=== PATIENT | female | born 1955 | race Asian ===

== ENCOUNTER 2018-11-09 13:00 | Emergency (ER) | payer OTHER ==
[2018-11-09] MEDS ORDERED: ASPIRIN 81 MG CHEWABLE TABLETS PO ONE (13:09)
--- NOTE | 2018-11-09 13:10 | PDOC ---
Rapid Medical Evaluation Time Seen by Provider: 11/09/18 13:07 Medical Evaluation: 11/09/18 13:08 HIP: L leg pain which radiates to abdomen and chest PE: Diaphoretic ORDERS: Cardiac work up and labs Discharge Disposition - Diagnosis Chest pain - Referrals - Patient Instructions - Post Discharge Activity
[2018-11-09 13:11] VITALS: PULSE 68; TEMP 98.3; BMI 29.2
[2018-11-09] MEDS ORDERED: ASPIRIN 81 MG CHEWABLE TABLETS ONE (14:13)
[2018-11-09] MEDS ORDERED: ACETAMINOPHEN 500 MG TABLET (FP) PO ONE (14:43)
[2018-11-09] MEDS ORDERED: LIDOCAINE 5% TOPICAL PATCH TP ONE (14:43)
[2018-11-09 14:49] LABS: BASO % 0.3 % (0-2.0); EOS % 1.3 % (0-4.5); HEMATOCRIT 35.9 % (32.4-45.2); HEMOGLOBIN 12.3 GM/dL (10.7-15.3); LYMPH % 37.7 % (8-40); MCH 31.5 pg (25.7-33.7); MCHC 34.2 g/dl (32.0-36.0); MEAN PLT VOLUME 7.5 fl (7.5-11.1); MONO % 6.3 % (3.8-10.2); NEUT % 54.4 % (42.8-82.8); PLATELET COUNT 238 K/MM3 (134-434); RDW 13.9 % (11.6-15.6); WHITE BLOOD COUNT 6.5 K/mm3 (4.0-10.0)
[2018-11-09 15:05] LABS: INR 0.97 (0.83-1.09); PROTHROMBIN TIME (PATIENT) 11.4 SEC (9.7-13.0)
[2018-11-09] MEDS ORDERED: diazePAM 2 MG TABLET PO ONE (15:08)
--- NOTE | 2018-11-09 15:08 | EKG ---
Test Reason : Blood Pressure : / mmHG Vent. Rate : 069 BPM Atrial Rate : 069 BPM P-R Int : 166 ms QRS Dur : 086 ms QT Int : 378 ms P-R-T Axes : 053 004 051 degrees QTc Int : 405 ms NORMAL SINUS RHYTHM NORMAL ECG NO PREVIOUS ECGS AVAILABLE Confirmed by AMAURI CEDEÑO, APURVA ([id number]) on 11/09/2018 3:08:20 PM Referred By: Confirmed By:APURVA BAUGH MD
[2018-11-09 15:19] LABS: ALK PHOS 63 U/L (45-117); ANION GAP 6 MMOL/L (8-16); BILIRUBIN,TOTAL 0.3 mg/dL (0.2-1); BLOOD UREA NITROGEN 12.8 mg/dL (7-18); CHLORIDE 104 mmol/L (98-107); CO2 27 mmol/L (21-32); GLUCOSE,RANDOM 117 mg/dL (74-106); MAGNESIUM 2.6 mg/dL (1.8-2.4); SGOT/AST 19 U/L (15-37); SGPT/ALT 30 U/L (13-61); SODIUM 137 mmol/L (136-145); TOT PROT 7.8 g/dl (6.4-8.2)
[2018-11-09] MEDS ORDERED: ACETAMINOPHEN 325 MG TABLET (FP) ONE (15:33)
[2018-11-09] MEDS ORDERED: diazePAM 2 MG TABLET ONE (15:34)
[2018-11-09] MEDS ORDERED: LIDOCAINE 5% TOPICAL PATCH ONE (15:34)
[2018-11-09 16:12] LABS: EPI CELLS 0.4 /HPF (0-5/HPF); HYALINE CASTS 1 /lpf (0-8); PH,URINE 6.5 (5.0-8.0); URINE APPEARANCE CLEAR; URINE BACTERIA 2.9 /hpf (NEGATIVE); URINE BILIRUBIN NEGATIVE (NEGATIVE); URINE COLOR YELLOW; URINE GLUCOSE (UA) NEGATIVE (NEGATIVE); URINE KETONE NEGATIVE (NEGATIVE); URINE LEUK ESTERASE TRACE (NEGATIVE); URINE NITRITE NEGATIVE (NEGATIVE); URINE PROTEIN NEGATIVE (NEGATIVE); URINE RBC 1 /hpf (0-4); URINE UROBILINOGEN 0.2 mg/dL (0.2-1.0); URINE WBC 1 /hpf (0-5)
--- NOTE | 2018-11-09 16:31 | PDOC ---
Documentation entered by Candelaria Lopez SCRIBE, acting as scribe for Trudy Granados MD. Trudy Granados MD: This documentation has been prepared by the John staples Adrianna, SCRIBE, under my direction and personally reviewed by me in its entirety. I confirm that the documentation accurately reflects all work, treatment, procedures, and medical decision making performed by me. Attending Attestation - Resident Resident Name: Brain Hawthorne - ED Attending Attestation I have performed the following: I have examined & evaluated the patient, The case was reviewed & discussed with the resident, I agree w/resident's findings & plan, Exceptions are as noted - HPI HPI: The patient is a 63 year old female, with a significant PMH of, who presents to the ED for evaluation of left lower back pain. Patient daughter at beside provides history. She notes that her mother has been experiencing left lower back pain that radiates down the left lower extremity. Patient notes the pain is intermittent, sharp, and shooting in nature, lasting for 5-10 minutes. Patient states that the pain has progressively worsened, and now radiates across her lower abdomen, into her chest, and neck. She originally associated it with sciatica, but did not find any relief with Tylenol or Tramadol. Allergies: Penicillins Surgical History: None reported Social History: None reported PCP: 11/09/18 16:02 - Physicial Exam PE: 11/09/18 16:13 GENERAL: The patient is in no acute distress, intermittently in severe pain ENT: Ears normal, nares patent, oropharynx clear without exudates. Moist mucous membranes. NECK: Normal range of motion, supple, no nuchal rigidity or midline cervical spine tenderness LUNGS: Breath sounds equal, clear to auscultation bilaterally. HEART:Regular rate and rhythm, normal S1 and S2 without murmur, rub or gallop. ABDOMEN: Soft, nontender, normoactive bowel sounds. EXTREMITIES: Normal range of motion, no edema. NEUROLOGICAL: Cranial nerves II through XII grossly intact. Normal speech. No focal neurological deficits. ANY movement of the left lower extremity results in severe pain Back pain located left lumbar paraspinal region This area is tender to palpation Peripheral sensation in tact Motor in tact but limited due to pain SKIN: Warm, Dry, normal turgor, no rashes or lesions noted. - Medical Decision Making 11/09/18 14:28 EKG - Twelve-lead EKG was performed and reviewed by me. There is normal sinus rhythm with a normal rate. The axis is normal. The intervals are normal. There are no ST or T wave abnormalities. Impression: Normal twelve-lead EKG 11/09/18 16:19 Ms Harris is a 3 yo F who presents with what was initially described as chest pain but from further questioning, is a progression of back pain Pt has had 1 month of back pain which has progressively worsened She notes intermittent back cramping Pt denies trauma, denies heavy lifting (although pt daughter says she lifts her granddaughter and carries her up and down the stairs) Pt denies IVDU, h/o cancer that we know of 11/09/18 16:28 Will do Labs Analgesia Re Assess 11/09/18 16:29 Laboratory Tests 11/09/18 11/09/18 11/09/18 14:35 14:35 14:35 WBC 6.5 Hgb 12.3 Hct 35.9 Plt Count 238 INR 0.97 BUN 12.8 Creatinine 1.0 Creatine Kinase 225 H Creatine Kinase Index 0.8 CK-MB (CK-2) 1.8 Troponin I < 0.02 Ur Leukocyte Esterase Urine WBC (Auto) Urine RBC (Auto) 11/09/18 15:57 WBC Hgb Hct Plt Count INR BUN Creatinine Creatine Kinase Creatine Kinase Index CK-MB (CK-2) Troponin I Ur Leukocyte Esterase Trace Urine WBC (Auto) 1 Urine RBC (Auto) 1 11/09/18 16:30 Pt has had an xray -- unrevealing Will re assess Of pain severe, pt may need to be placed on observation Pt felt better after medications given Pt able to go home Pt discharged to home Pt to follow up with PMD Clinical Impression: back pain
--- NOTE | 2018-11-09 17:43 | PDOC ---
History of Present Illness - General Chief Complaint: Chest Pain Stated Complaint: LT LEG / ABD PAIN Time Seen by Provider: 11/09/18 13:07 History Source: Patient, Family (Daughter present at bedside.), Pt declined Control Systems Drafting Officer (Pt is Malayalam speaking only. Requested daughter provide interpretation. Declined [employer] telephone.) Exam Limitations: Language Barrier - History of Present Illness Initial Comments: HPI: 63 y/o female presenting to [facility] ER complaining of one month of worsening intermittent left leg pain. The pain radiates from the posterior left hip down the back of the leg and then up into the left flank, chest, and neck. Episodes last approx 1 min before resolving. Described as shooting pain. Was evaluated by PCP and diagnosed with sciatica. Prescribed tramadol and motrin, which has not provided sufficient relief. Also referred to a vat packer, but pt has not followed up. Denies saddle anesthesia, urinary retention, loss of bowel control, numbness/tingling, or difficulty ambulating. Medical Hx: - HTN - Hypothyroidism - HLD - h/o arthritis - s/p Thyroidectomy - s/p BTL Review of Systems: In addition to that documented in the HPI above, the additional ROS was obtained : Constitutional: Denies fevers or chills Head: Denies vision changes ENMT: Denies sore throat CV: Denies palpitations or sensations of heart racing Resp: Denies SOB GI: Denies vomiting or diarrhea : Denies painful urination, hematuria, or increased urinary frequency MSK: Denies recent trauma Skin: Denies new rashes Neuro: Denies new numbness or tingling or weakness Endocrine: Denies polyuria Heme: Denies bleeding or bruising Physical Examination: Constitutional: Nontoxic elderly adult female in no acute distress but intermittently in obvious discomfort. Found semi-fowlers. Alert and oriented x4. Answered all questions appropriately and completely. Speech was non-labored , non-pressured. Head: Normocephalic. No obvious external signs of trauma. Eyes: PERRL. EOMI. Sclerae white. Conjunctiva moist and not injected. Ears: External auditory canals and tympanic membranes pearly cabral. Hearing grossly intact. Nose: No nasal discharge. Throat: Oral cavity and pharynx normal. No inflammation, swelling, exudate, or lesions. Teeth and gingiva in good general condition. Neck: Supple, trachea is midline. No JVD or thyromegaly. Cardiovascular / Chest: Regular rate and regular rhythm. No murmur, rubs, clicks , or gallops. Peripheral pulses: radial pulses full. Respiratory: Breathing unlabored. Equal chest rise and fall. Clear to auscultation bilaterally. No stridor, no wheezing, no rhonchi. Gastrointestinal: abdomen is soft, non-tender, non-distended. Neuro: Alert and oriented. Moving all four extremities spontaneously. Upper and lower extremities: proximal and distal strength 5/5. Retirement Village Manager strength 5/5 - equal and symmetric. Plantar flexion and dorsiflexion 5/5. Pain elicited with leg raised above 45 degrees. Skin: Warm, dry, and intact. No bruising, rashes, or other lesions. No palpable nodules. : No R or L CVA tenderness. Psych: Affect: appropriate. Mood: normal. MDM: *Reviewed vital signs, nursing notes, and prior visit documentation (if available). 63 y/o female presenting with intermittent left leg pain that radiates up to left side of back and chest. No red flags for cord compression. Afebrile. Vitals unremarkable for hypotension or tachycardia. Physical exam as described above. Suspect sciatica versus muscle spasm. Ordered lidocaine patch and PO valium. RME ordered cardiac workup. EKG unremarkable for ischemic findings. Troponin not elevated. CXR unremarkable for acute cardiopulmonary findings. CBC and CMP unremarkable for derangement. UA unremarkable for pyuria, nitrites, or leukocyte esterase. Pt reassessed. Reports pain has improved. Discussed imaging and laboratory results with pt and family. Answered all questions. Provided return precautions. Pt expressed verbal understanding and agreement with plan to discharge home with outpatient follow up. Provided neurosurgery referral. Brain Hawthorne M.D., PGY1 Emergency Medicine Resident Past History - Past Medical History Allergies/Adverse Reactions: Allergies Allergy/AdvReac Type Severity Reaction Status Date / Time Penicillins Allergy Verified 11/09/18 13:11 Home Medications: Ambulatory Orders Amlodipine Besylate [Norvasc -] 5 mg PO BID 11/09/18 Levothyroxine [Synthroid -] 100 mcg PO DAILY 11/09/18 Lidocaine 5% Patch [Lidoderm Patch -] 1 patch TP DAILY PRN #30 patch 11/09/18 Methocarbamol [Robaxin -] 500 mg PO TID PRN #30 tablet 11/09/18 Metoprolol Tartrate [Lopressor -] 50 mg PO DAILY 11/09/18 Naproxen Sodium 220 mg PO BID PRN #30 tablet 11/09/18 Oxycodone HCl/Acetaminophen [Percocet 5-325 mg Tablet -] 1 tab PO BID #10 tablet MDD SEVERE PAIN 11/09/18 Simvastatin [Zocor -] 5 mg PO WEEKLY 11/09/18 COPD: No HTN: Yes Hypercholesterolemia: Yes Seizures: Yes - Suicide/Smoking/Psychosocial Hx Smoking History: Never smoked *Physical Exam - Vital Signs Last Vital Signs Temp Pulse Resp BP Pulse Ox 98.3 F 68 20 173/69 H 99 11/09/18 13:08 11/09/18 13:08 11/09/18 13:08 11/09/18 13:08 11/09/18 13:08 ED Treatment Course - LABORATORY CBC & Chemistry Diagram: 11/09/18 14:35 11/09/18 14:35 - ADDITIONAL ORDERS Additional order review: Laboratory Results 11/09/18 11/09/18 11/09/18 15:57 14:35 14:35 PT with INR INR Sodium 137 Potassium 4.0 Chloride 104 Carbon Dioxide 27 Anion Gap 6 L BUN 12.8 Creatinine 1.0 Est GFR (CKD-EPI)AfAm 69.44 Est GFR (CKD-EPI)NonAf 59.91 Random Glucose 117 H Calcium 9.0 Magnesium 2.6 H Total Bilirubin 0.3 AST 19 ALT 30 Alkaline Phosphatase 63 Creatine Kinase 225 H Creatine Kinase Index 0.8 CK-MB (CK-2) 1.8 Troponin I < 0.02 Total Protein 7.8 Albumin 4.0 Lipase 149 Urine Color Yellow Urine Appearance Clear Urine pH 6.5 Ur Specific [place] 1.008 L Urine Protein Negative Urine Glucose (UA) Negative Urine Ketones Negative Urine Blood Negative Urine Nitrite Negative Urine Bilirubin Negative Urine Urobilinogen 0.2 Ur Leukocyte Esterase Trace Urine WBC (Auto) 1 Urine RBC (Auto) 1 Urine Casts (Auto) 1 U Pathogenic Cast Auto No Result Required. U Epithel Cells (Auto) 0.4 Urine Bacteria (Auto) 2.9 11/09/18 14:35 PT with INR 11.40 INR 0.97 Sodium Potassium Chloride Carbon Dioxide Anion Gap BUN Creatinine Est GFR (CKD-EPI)AfAm Est GFR (CKD-EPI)NonAf Random Glucose Calcium Magnesium Total Bilirubin AST ALT Alkaline Phosphatase Creatine Kinase Creatine Kinase Index CK-MB (CK-2) Troponin I Total Protein Albumin Lipase Urine Color Urine Appearance Urine pH Ur Specific [place] Urine Protein Urine Glucose (UA) Urine Ketones Urine Blood Urine Nitrite Urine Bilirubin Urine Urobilinogen Ur Leukocyte Esterase Urine WBC (Auto) Urine RBC (Auto) Urine Casts (Auto) U Pathogenic Cast Auto U Epithel Cells (Auto) Urine Bacteria (Auto) 11/09/18 14:35 RBC 3.90 MCV 92.0 MCHC 34.2 RDW 13.9 MPV 7.5 Neutrophils % 54.4 Lymphocytes % 37.7 Monocytes % 6.3 Eosinophils % 1.3 Basophils % 0.3 - Medications Given in the ED: ED Medications Discontinued Medications Generic Name Dose Route Start Last Admin Trade Name Freq PRN Reason Stop Dose Admin Acetaminophen 975 mg 11/09/18 14:43 11/09/18 15:40 Tylenol - PO 11/09/18 14:44 975 mg ONCE ONE Administration Aspirin 162 mg 11/09/18 13:09 11/09/18 14:17 Asa - PO 11/09/18 13:10 162 mg ONCE ONE Administration Diazepam 2 mg 11/09/18 15:08 11/09/18 15:40 Valium - PO 11/09/18 15:09 2 mg ONCE ONE Administration Lidocaine 1 patch 11/09/18 14:43 11/09/18 15:40 Lidoderm Patch - TP 11/09/18 14:44 1 patch ONCE ONE Administration *DC/Admit/Observation/Transfer Diagnosis at time of Disposition: Chest pain - Discharge Dispostion Disposition: HOME Condition at time of disposition: Improved Decision to Admit order: No - Prescriptions Prescriptions: Lidocaine 5% Patch [Lidoderm Patch -] 1 patch TP DAILY PRN #30 patch PRN Reason: Pain Methocarbamol [Robaxin -] 500 mg PO TID PRN #30 tablet PRN Reason: Lower Back Pain Naproxen Sodium 220 mg PO BID PRN #30 tablet PRN Reason: Pain Oxycodone HCl/Acetaminophen [Percocet 5-325 mg Tablet -] 1 tab PO BID #10 tablet MDD SEVERE PAIN - Referrals Referrals: Lizzeth Cho MD [Primary Care Provider] - Kaleb Bolivar MD, FAANS [Staff Physician] - - Patient Instructions Printed Discharge Instructions: DI for Atypical Chest Pain, DI for Back Pain With Sciatica Additional Instructions: You were seen today for intermittent left leg pain that moves down your leg and up your back. Your EKG, chest xray, and blood work were normal. Your pain improved after receiving Valium. Your pain is still likely to be from sciatica. Continue to take the medication prescribed by your doctor for the pain. You can also try over the counter Lidoderm patches. Take as directed on the package insert. You can find them at most major retail pharmacies. I have placed a referral for you to see a neurosurgeon, Dr. Bolivar. You will need to call to make an appointment. The number is included in this packet. A copy of [facility] results are attached to this packet. Take it to the appointment so your doctor can review them. You should also follow up with your primary care doctor within the next 3-4 days. You will need to call to make an appointment. The number is included in this packet. A copy of [facility] results are attached to this packet. Take it to the appointment so your doctor can review them. Go to the nearest emergency department if your condition worsens or you feel like you need additional emergency evaluation. Print Language: TELUGU - Post Discharge Activity
[2018-11-09 18:01] VITALS: BP 124/82
[2018-11-09] MEDS ORDERED: LIDOCAINE PATCH REMOVAL MC SCH (22:00)
== END 2018-11-09 17:56 | disposition home or self-care (01) ==
LOC: SUPCPDRO 13:00 → JER 13:00
DX: M79.605 Pain in left leg (principal)
CPT/HCPCS: 36415; 71046-TC-FY; 80053; 81003; 82550; 82553; 83690; 83735; 84484; 85025; 85610; 87086; 93005; 93010; 99285-25